=== PATIENT | male | born 2000 | race Two or more races ===

== ENCOUNTER 2025-03-02 18:26 | Emergency (ER) | payer OTHER ==
[~2025-03-02] VITALS: Ht 170.2 cm; Wt 71.1 kg
[2025-03-02] MEDS: ONDANSETRON ODT 4 MG TAB PO ONE (19:05)
[2025-03-02] MEDS: SUMAtriptan SUCCINATE 6 MG/0.5 ML VL SC ONE (19:08)
[2025-03-02] MEDS ORDERED: SUMA100T2 PO (20:11)
[2025-03-02] MEDS ORDERED: ZOFR4T PO (20:11)
--- NOTE | 2025-03-02 20:12 | ED.PDOC ---
HPI (NEURO) HPI Comments This patient is a 24-year-old male who arrives the ED today for evaluation of headache concerns. Patient called his headache in migraine, but has been diagnosed by a neurologist and upon inquiry, states that he calls it that because of the severity of it. Patient has had headaches of this nature in the past. Patient denies any fever but states intermittent nausea and photophobia. Vital signs were stable on arrival. Patient denies any head trauma. Chief Complaint: Headache Time Seen by MD: 18:34 Reviewed Notes: Nurses Notes Information Source: Patient, Friend Mode of Arrival: Ambulatory Severity: Moderate Dizziness/Weakness Severity: Does not affect activitie Headache Severity: Severe Timing: Hours Duration: Since onset Prehospital treatment: None Headache Quality: Throbbing, Aching, Sharp Headache Location: Frontal, Temporal Onset: At rest Circumstances: Spontaneous Symptoms: Other (Nausea) History of: Other (Severe headaches) Associated Signs and Symptoms: Headache, Nausea Past Medical History PAST MEDICAL HISTORY: Denies Past Medical History (Other): Patient states a history of [id number] headaches Surgical History: Denies all surgeries Family History Family History: Reviewed,noncontributory to illness, No family hx of Cancer, No family hx of DM, No family hx of Heart teresa, No family hx of HTN, No family hx ofKidney teresa, No family hx of Liver teresa, No family hx of Lung teresa, No family hx of Stroke Social History Smoker: Non-Smoker Alcohol: Denies ETOH Use Drugs: Denies Drug Use Lives In: Home Constitutional: denies: chills, diaphoresis, fatigue, fever, malaise, sweats, weakness, others EENTM: denies: blurred vision, double vision, ear bleeding, ear discharge, ear drainage, ear pain, ear ringing, eye pain, eye redness, hearing loss, mouth pain, mouth swelling, nasal discharge, nose bleeding, nose congestion, nose pain, photophobia, tearing, throat pain, throat swelling, voice changes, others Respiratory: denies: cough, hemoptysis, orthopnea, SOB at rest, shortness of breath, SOB with excertion, stridor, wheezing, others Cardiovascular: denies: chest pain, dizzy spells, diaphoresis, Dyspnea on exertion, edema, irregular heart beat, left arm pain, lightheadedness, palpitations, PND, syncope, others Gastrointestinal: denies: abdomen distended, abdominal pain, blood streaked bowels, constipated, diarrhea, dysphagia, difficulty swallowing, hematemesis, melena, nausea, poor appetite, poor fluid intake, rectal bleeding, rectal pain, vomiting, others Genitourinary: denies: burning, dysuria, flank pain, frequency, hematuria, incontinence, penile discharge, penile sore, pain, testicle pain, testicle swelling, urgency, others Neurological: reports: headache; denies: dizziness, fainting, left sided numbness, left sided weakness, numbness, paresthesia, pre-existing deficit, right sided numbness, right sided weakness, seizure, speech problems, tingling, tremors, weakness, others Musculoskeletal: denies: back pain, gout, joint pain, joint swelling, muscle pain, muscle stiffness, neck pain, others Integumetry: denies: bruises, change in color, change in hair/nails, dryness, laceration, lesions, lumps, rash, wounds, others Allergic/Immunocompromised: denies: Difficulty Healing, Frequent Infections, Hives, Itching, others Hematologic/Lymphatic: denies: anemia, blood clots, easy bleeding, easy bruising, swollen glands, others Endocrine: denies: excessive hunger, excessive sweating, excessive thirst, excessive urination, flushing, intolerance to cold, intolerance to heat, unexplained weight gain, unexplained weight loss, others Psychiatric: denies: anxiety, bipolar disorder, depression, hopeless, panic disorder, schizophrenia, sleepless, suicidal, others Physical Exam General Appearance: Moderate Distress (Due to headache concerns.), Normal HEENT: Head (Unremarkable cranial evaluation. No signs of trauma. No skull depressions or deformities.), Normal ENT Inspection, Pharynx Normal, TMs Normal Neck: Full Range of Motion, Non-Tender, Normal, Normal Inspection Respiratory: Chest Non-Tender, Lungs Clear, No Accessory Muscle Use, No Respiratory Distress, Normal Breath Sounds Cardiovascular: No Edema, No JVD, No Murmur, No Gallop, Normal Peripheral Pulses, Regular Rate/Rhythm Breast Exam: Deferred Gastrointestinal: No Organomegaly, Non Tender, No Pulsatile Mass, Normal Bowel Sounds, Soft Genitalia: Deferred Pelvic: Deferred Rectal: Deferred Extremities: No calf tenderness, Normal inspection Neurologic: Alert Cerebellar Function: NOT DONE Reflexes: NOT DONE Skin: Dry, Normal Color, Warm Lymphatic: No Adenopathy Was a procedure done? Was a procedure done?: No Differential Diagnosis (SZ) Headache: Other (Migraine headache, cluster headache, tension headache, headache) X-Ray, Labs, Meds, VS Vital Signs Date Time Temp Pulse Resp B/P (MAP) Pulse Ox O2 Delivery O2 Flow Rate FiO2 03/02/25 18:28 97.4 82 12 124/81 99 97.4 Current Medications Medications (Trade) Dose Ordered Sig/Garth Route Start Time Stop Time Status Last Admin Sumatriptan Succinate (Imitrex Inj) 6 mg ONCE ONCE SC 03/02/25 18:45 03/02/25 18:46 DC 03/02/25 19:08 Ondansetron HCl (Zofran Po) 4 mg ONCE ONCE PO 03/02/25 18:45 03/02/25 18:46 DC 03/02/25 19:05 X-Ray, Labs, Meds, VS Comment Patient states some moderate response to medication dispensed. Advised patient that is this may or may not be a migraine concern, but I will send the patient home with some migraine medication that I am hopeful is effective. Patient really needs to follow up with his primary care provider for neurologic referral and evaluation to assess for migraine concerns. Time of 1ST Reevaluation: 20:09 Reevaluation 1ST: Improved Consultation: PCP, Neurology Patient Education/Counseling: Diagnosis, Treatment Family Education/Counseling: Diagnosis, Treatment Departure 1 Departure Time of Disposition: 20:09 Impression: Primary Impression: Frequent headaches Disposition: 01 HOME / SELF CARE / HOMELESS Condition: Stable Additional Instructions: Advised patient utilize medication as needed for symptomatic relief. Patient needs to follow up with the primary care provider for a neurologic referral and evaluation to assess for definitive migraine concerns. e-Prescriptions Ondansetron Odt 4MG Tab (ZOFRAN PO) 4 Mg Tb 4 MG PO Q6HP PRN, #15 TAB ODT TAB-DISSOLVE IN MOUTH, THEN SWALLOW Prov: TO LANDEROS PAC 03/02/25 Sumatriptan Succinate (Imitrex) 100 Mg Tab 100 MG PO BIDP PRN, #10 TAB To be used at the onset of the headache. Patient can repeat a 2nd dose 1 hour after if 1st dose ineffective. Max two pills per 24 hours. Prov: TO LANDEROS 03/02/25 Discharged With: Self, Friend Critical Care Note Critical Care Time?: No Stability Stability form required: No Heart Score Heart Score: Heart Score Response (Comments) Value History N/A 0 EKG N/A 0 Age N/A 0 Risk Factors N/A 0 Troponin N/A 0 Total 0 TO LANDEROS PAC Mar 02, 2025 20:12
[2025-03-02 20:36] VITALS: BP 118/75; PULSE 76; RESP 17; TEMP 97.8; O2SAT 100
== END 2025-03-02 20:36 | disposition home or self-care (01) ==
LOC: ER 18:28
DX: G43.909 Migraine, unspecified, not intractable, without status migrainosus (principal)
CPT/HCPCS: 96372; 99283; J3030; Q0162